=== PATIENT | female | born 1990 | race Caucasian/White ===

== ENCOUNTER 2018-10-29 14:45 | Emergency (ER) | payer MEDICAID, OTHER ==
[2018-10-29 16:24] LABS: BASOPHILS % (AUTO) 0.6 % (0.0-5.0); EOSINOPHILS % (AUTO) 1.5 % (0.0-8.0); HEMATOCRIT 39.1 % (36-48); LYMPHOCYTES % (AUTO) 26.8 % (21.0-51.0); MEAN CORPUSCULAR HEMOGLOBIN 31.8 pg (27.0-33.0); MEAN CORPUSCULAR HGB CONC 33.4 g/dL (32.0-36.0); MONOCYTES % (AUTO) 4.8 % (3.0-13.0); NEUTROPHILS % (AUTO) 66.3 % (40.0-77.0); PLATELET COUNT (AUTO) 200 K/uL (130-400); RED BLOOD CELL COUNT(AUTO) 4.12 MIL/uL (4.00-5.50); RED CELL DISTRIBUTION WIDTH 13.5 % (11.0-15.5); WHITE BLOOD COUNT (AUTO) 8.3 K/uL (4.8-10.8)
[2018-10-29 16:38] LABS: CREATININE 0.7 mg/dL (0.5-1.5); POTASSIUM 3.9 mmol/L (3.5-5.1)
[2018-10-29 16:51] LABS: APPEARANCE,URINE Clear (CLEAR); BILIRUBIN,URINE Negative (NEGATIVE); COLOR,URINE Yellow (YELLOW); GLUCOSE, URINE (UA) Negative (NEGATIVE); KETONES,URINE Negative (NEGATIVE); LEUKOCYTE ESTERASE ,URINE Negative (NEGATIVE); NITRATE,URINE Negative (NEGATIVE); OCCULT BLOOD,URINE Negative (NEGATIVE); PH,URINE 7.5 (5.0-8.0); PROTEIN,URINE Negative (NEGATIVE); UROBILINOGEN,URINE 0.2 mg/dL (0.2-1.0)
[2018-10-29 16:57] LABS: HCG,QUAL RESULT POSITIVE (NEGATIVE)
[2018-10-29 17:07] LABS: ALBUMIN 3.8 g/dL (3.5-5.0); BILIRUBIN,DIRECT 0.1 mg/dL (0.0-0.3); BILIRUBIN,TOTAL 0.3 mg/dL (0.2-1.0); TOTAL PROTEIN, SERUM 8.1 g/dL (6.0-8.3)
== END 2018-10-29 17:35 | disposition home or self-care (01) ==
LOC: EDH 14:45
DX: O21.8 Other vomiting complicating pregnancy (principal); O26.891 Other specified pregnancy related conditions, first trimester; R10.13 Epigastric pain; R10.30 Lower abdominal pain, unspecified; Z72.0 Tobacco use; Z98.890 Other specified postprocedural states; Z3A.01 Less than 8 weeks gestation of pregnancy
CPT/HCPCS: 36415; 76801; 80048; 80076; 81003; 81025; 83690; 84702; 85025; 86900; 86901

== ENCOUNTER 2019-03-24 15:05 | Emergency (ER) | payer MEDICAID | END 2019-03-24 15:37 | disposition home or self-care (01) | LOC: EDH 15:05 | DX: O98.512 Other viral diseases complicating pregnancy, second trimester (principal); B34.9 Viral infection, unspecified; O99.512 Diseases of the respiratory system complicating pregnancy, second trimester; J39.9 Disease of upper respiratory tract, unspecified; Z3A.27 27 weeks gestation of pregnancy; Z90.49 Acquired absence of other specified parts of digestive tract; Z98.890 Other specified postprocedural states ==

== ENCOUNTER 2019-06-04 07:26 | Inpatient (IN) | payer MEDICAID ==
[~2019-06-04] VITALS: Ht 154.9 cm; Wt 98.0 kg
[2019-06-04] MEDS ORDERED: LACTATED RINGERS 1000ML 1,000 ML IV PRN ×2 (08:20→10:48)
[2019-06-04 08:45] LABS: APPEARANCE,URINE Clear (CLEAR); BILIRUBIN,URINE Negative (NEGATIVE); COLOR,URINE Yellow (YELLOW); GLUCOSE, URINE (UA) Negative (NEGATIVE); KETONES,URINE Negative (NEGATIVE); LEUKOCYTE ESTERASE ,URINE Negative (NEGATIVE); NITRATE,URINE Negative (NEGATIVE); OCCULT BLOOD,URINE Trace (NEGATIVE); PH,URINE 6.5 (5.0-8.0); PROTEIN,URINE Negative (NEGATIVE); UROBILINOGEN,URINE 0.2 mg/dL (0.2-1.0)
[2019-06-04 08:46] LABS: HEMATOCRIT 34.4 % (36-48); MEAN CORPUSCULAR HEMOGLOBIN 29.6 pg (27.0-33.0); MEAN CORPUSCULAR HGB CONC 33.4 g/dL (32.0-36.0); MEAN CORPUSCULAR VOLUME 88.6 fL (79-99); NUCLEATED RED BLOOD CELLS 0.1 % (0.0-0.19); PLATELET COUNT (AUTO) 135 K/uL (130-400); RED BLOOD CELL COUNT(AUTO) 3.88 MIL/uL (4.00-5.50); RED CELL DISTRIBUTION WIDTH 15.5 % (11.0-15.5); WHITE BLOOD COUNT (AUTO) 11.6 K/uL (4.8-10.8)
[2019-06-04 08:52] LABS: AMPHET/METH SCREEN,URINE NEGATIVE (NEGATIVE); BARBITURATE SCREEN, URINE NEGATIVE (NEGATIVE); BENZODIAZEPINES SCREEN,URINE NEGATIVE (NEGATIVE); CANNABINOID SCREEN,URINE NEGATIVE (NEGATIVE); COCAINE SCREEN,URINE NEGATIVE (NEGATIVE); OPIATE SCREEN,URINE NEGATIVE (NEGATIVE); PHENCYCLIDINE SCREEN,URINE NEGATIVE (NEGATIVE)
[2019-06-04 09:29] LABS: RBC,URINE 0-1 /HPF (0-1); WBC,URINE 0-1 /HPF (0-1)
[2019-06-04 09:30] LABS: BACTERIA,URINE Rare /HPF (None Seen); SQUAMOUS EPITHELIAL CELL,UR Few /HPF (0-2)
[2019-06-04] MEDS ORDERED: PROMETHAZINE HCL 25 MG/ML 1ML AMPULE IM SCH (09:30)
[2019-06-04] MEDS ORDERED: MEPERIDINE-PF 50 MG/ML SYG IVP SCH (09:30)
[2019-06-04 09:51] VITALS: BP 130/68
[2019-06-04] MEDS ORDERED: NALOXONE HCL 0.4 MG/1 ML ML IV PRN (11:45)
[2019-06-04] MEDS ORDERED: ROPIVACAINE 0.2% 100ML VIAL 100 ML EP SCH (11:45)
[2019-06-04] MEDS ORDERED: LACTATED RINGERS 500 ML 500 ML IV PRN (11:45)
[2019-06-04] MEDS ORDERED: EPHEDRINE SULFATE 50 MG/ML AMPULE IVP PRN ×2 (11:45→20:30)
[2019-06-04] MEDS ORDERED: CLINDAMYCIN 900 MG/D5% WATER 50 ML IV PRN (15:00)
[2019-06-04] MEDS ORDERED: CLINDAMYCIN 900 MG/D5% WATER 50 ML IV ONE (15:02)
[2019-06-04] MEDS ORDERED: CITRIC ACID/SODIUM CITRATE 30 ML UDCUP ONE (15:32)
[2019-06-04] MEDS ORDERED: FENTANYL CITRATE PF 50 MCG/1 ML 2ML VIAL ONE (15:33)
[2019-06-04] MEDS ORDERED: DURAMORPH PF1 MG/ML 10ML AMP IV ONE (15:50)
[2019-06-04] MEDS ORDERED: OXYTOCIN 10 USP UNITS/ML ONE (15:50)
[2019-06-04] MEDS ORDERED: LIDOCAINE HCL-MPF 2% 5ML VIAL ONE (16:02)
[2019-06-04 16:28] LABS: HEMATOCRIT 34.4 % (36-48)
[2019-06-04] MEDS ORDERED: OXYTOCIN-LR 20 UNITS/1000 ML 1,000 ML IV ONE (16:39)
[2019-06-04] MEDS ORDERED: DEXTROSE 5 %-0.45 % NACL 1,000 ML IV PRN (16:45)
[2019-06-04] MEDS ORDERED: MEPERIDINE-PF 75 MG/ML SYG IM PRN (16:45)
[2019-06-04] MEDS ORDERED: PROMETHAZINE HCL 25 MG/ML 1ML AMPULE IM PRN (16:45)
[2019-06-04] MEDS ORDERED: SODIUM CHLORIDE 0.9% 10 ML VIAL IVP PRN (16:45)
[2019-06-04] MEDS ORDERED: IBUPROFEN 800 MG TAB ONE (19:26)
[2019-06-04] MEDS: IBUPROFEN 800 MG TAB PO SCH (19:41)
--- NOTE | 2019-06-04 20:15 | NUR ---
Reinforcing teaching on warning signs of increase bleeding or pain; instructing to report any concerns; Informing of current plan for continued care, encouraging freq position changes, , and to call for assistance when needed. Pt voices understanding; restates will call for increase bleeding, pain, or for any assistance as needed. Addendum: 06/04/19 at 2104 by IVÁN KING RN RN Amended: Links added.
[2019-06-04] MEDS ORDERED: NALOXONE HCL 0.4 MG/1 ML ML IVP PRN ×3 (20:30)
[2019-06-04] MEDS ORDERED: ONDANSETRON HCL 4 MG/2 ML VIAL IVP PRN (20:30)
[2019-06-04] MEDS ORDERED: DiphenhydrAMINE HCL 50 MG/ML VIAL IVP PRN (20:30)
--- NOTE | 2019-06-04 20:45 | NUR ---
Assisting to left lateral position; pillow to back & between knees for comfort; Pillow placed between left side rail & pt with baby as per pt request. Pt continues skin to skin while changing position. Addendum: 06/04/19 at 2110 by IVÁN KING RN RN Amended: Links added.
--- NOTE | 2019-06-04 20:56 | NUR ---
Pitocin 20 units in 1000ml LR continues via pump@150ml/hr with 700ml credit. Addendum: 06/04/19 at 2056 by IVÁN KING RN RN Amended: Links added.
--- NOTE | 2019-06-04 21:13 | NUR ---
Encouraging rest while baby is asleep, and instructing to report feelings of high temp, chills or body aches; Informing s/s of infection or lack of rest can hinder healing process; pt voices understanding & agrees to teaching. Addendum: 06/04/19 at 2115 by IVÁN KING RN RN Amended: Links added.
--- NOTE | 2019-06-04 21:43 | NUR ---
Pt requesting assistance to right side & francheska pad change; Changing francheska pads & noting abd dressing slightly soiled; Informing pt of soiled dressing under tape; will alecia to assess for increase in bleeding to site; pt voices understanding, denies pain or tenderness to incision at present. After francheska care & francheska pad change, panties are reapplied & assisting to right side for comfort. Call button within reach on bed. Addendum: 06/04/19 at 2246 by IVÁN KING RN RN Amended: Links added.
[2019-06-04 23:45] VITALS: BP 112/65
[2019-06-04] MEDS: OXYTOCIN-LR 20 UNITS/1000 ML 1,000 ML IV PRN (23:58)
--- NOTE | 2019-06-05 01:30 | NUR ---
Pt remains in bed, on right side; in bed with pt in prep for . Denies concerns or questions at present. Spouse at bedside offering support. Addendum: 06/05/19 at 0211 by IVÁN KING RN RN Amended: Links added.
[2019-06-05] MEDS ORDERED: PREN1TAB80 PO (02:24)
[2019-06-05] MEDS: OXYTOCIN-LR 20 UNITS/1000 ML 1,000 ML IV PRN (02:29)
[2019-06-05 04:00] VITALS: BP 94/55
[2019-06-05] MEDS ORDERED: IBUPROFEN 800 MG TAB ONE (04:07)
[2019-06-05] MEDS: IBUPROFEN 800 MG TAB PO SCH ×2 (04:14→17:53)
[2019-06-05 07:14] LABS: HEPATITIS Bs ANTIGEN SCREEN P Negative (Negative)
[2019-06-05 07:50] VITALS: BP 100/69
[2019-06-05] MEDS ORDERED: ACETAMINOPHEN EXTRA STRENGTH 500 MG TABLET PO PRN (08:45)
[2019-06-05] MEDS ORDERED: ACETAMINOPHEN-CODEINE 300/30MG TAB PO PRN (08:45)
[2019-06-05] MEDS ORDERED: HYDROCODONE/ACETAMINOPHEN 5/325 MG TAB PO PRN (08:45)
[2019-06-05] MEDS ORDERED: BISACODYL 10 MG SUPP.RECT RC PRN (08:45)
[2019-06-05] MEDS ORDERED: IBUPROFEN 600 MG TABLET PO PRN (08:45)
--- NOTE | 2019-06-05 09:45 | NUR ---
HX OF +UDS on 11/11/18 Marcie met with pt and RUSS Palomino. Couple live and work together at [employer]. [place] with their daughter JHONNY PALOMINO. Pt has a 8yro son José Luis who lives with his father in [place]. Pt denies CPS involvement with son, states this was their arrangement and she pays father child support for son. Pt on Medicaid, WIC and Food stamp assistance. Couple has basic items for baby including car seat. Pt plans to breast feed baby. Pt denies any hx of abuse, domestic violence, mental health issues, post depression, CPS or legal. Pt admits to occasional THC abuse prior to confirmation and denies any use during . Pt was negative and delivery. Baby to have meconium tested. If results at positive, CPS report to be made. SW contacted local CPS office and verified no CPS hx for pt. Addendum: 06/05/19 at 0952 by PANCHO LARKIN Amended: Links added.
[2019-06-05 09:49] LABS: HEMATOCRIT 27.6 % (36-48); MEAN CORPUSCULAR HEMOGLOBIN 29.5 pg (27.0-33.0); MEAN CORPUSCULAR HGB CONC 33.1 g/dL (32.0-36.0); MEAN CORPUSCULAR VOLUME 89.1 fL (79-99); PLATELET COUNT (AUTO) 116 K/uL (130-400); RED BLOOD CELL COUNT(AUTO) 3.09 MIL/uL (4.00-5.50); RED CELL DISTRIBUTION WIDTH 15.2 % (11.0-15.5); WHITE BLOOD COUNT (AUTO) 9.9 K/uL (4.8-10.8)
[2019-06-05] MEDS: DOCUSATE SODIUM 100 MG CAP PO SCH ×2 (09:58→20:59)
[2019-06-05] MEDS: SIMETHICONE 80 MG TAB.CHEW PO PRN ×4 (09:58→20:59)
[2019-06-05 12:00] VITALS: BP 122/66
[2019-06-05 16:20] VITALS: BP 114/59
[2019-06-05 19:52] VITALS: BP 115/69
[2019-06-05 23:50] VITALS: BP 114/78
[2019-06-06] MEDS: IBUPROFEN 800 MG TAB PO SCH ×2 (01:53→10:00)
[2019-06-06 03:48] VITALS: BP 108/69
[2019-06-06 07:30] VITALS: BP 106/62
--- NOTE | 2019-06-06 07:30 | NUR ---
PATIENT ASSESSED AND STATES HAVING PAIN OF 2 BUT WANTS TO WAIT FOR MOTRIN DUE AT 1000. INCISION IS OPEN TO AIR WITH INSORBS OR HIDDEN STITCH AND NO REDNESS OR DRAINAGE NOTED TO SITE. PATIENT DOES HAVE 2+ EDEMA TO LOWER EXTREMITIES AND WAS INCOURAGED TO WALK IN HALLWAY. STATES HAVING STARTED TO PASS GAS.
[2019-06-06] MEDS: DOCUSATE SODIUM 100 MG CAP PO SCH (07:59)
[2019-06-06] MEDS: SIMETHICONE 80 MG TAB.CHEW PO PRN ×2 (07:59→13:24)
--- NOTE | 2019-06-06 11:30 | NUR ---
DR. HOFFMANN ROUNDED AND DISCHARGED PATIENT TO HOME. SCRIPT FOR TYLENOL #3 AND FESO4 LEFT IN CHART FOR PATIENT.
[2019-06-06 12:00] VITALS: BP 122/81
--- NOTE | 2019-06-06 12:45 | NUR ---
PATIENT WAS GIVEN SCRIPT FOR PAIN MANAGEMENT AND IRON AND DISCHARGED COMPLETED AT THIS TIME. DENIES HAVING ANY QUESTION ON DISCHARGE INSTRUCTIONS GIVEN. INCISION CARE REINFORCED.
--- NOTE | 2019-06-06 14:55 | NUR ---
PATIENT WAS TAKEN VIA W/C TO FAMILY VEHICLE AND CARRIED BABY IN ARMS. PATIENT DISCHARGED TO HER MOTHER AND FAMILY. PT STABLE AND DENIES PAIN.
== END 2019-06-06 14:55 | disposition home or self-care (01) | DRG 540 ==
LOC: EDH 07:26 → OBSVTOIN 07:27 → LDH 07:27 → WSH 22:32
PROVIDERS: ADMIT Specialist; ATTEND Specialist
PROC: 10D00Z1 Extraction of Products of Conception, Low, Open Approach (ICD-10-PCS; principal; 2019-06-04 15:39)
DX: O34.211 Maternal care for low transverse scar from previous cesarean delivery (principal); O66.41 Failed attempted vaginal birth after previous cesarean delivery; Z3A.38 38 weeks gestation of pregnancy; Z37.0 Single live birth
CPT/HCPCS: 36415; 59510; 80305; 81001; 82947; 85014; 85018; 85027; 86592; 86850; 86900; 86901; 87340; A4314; A4344; A4606; G0378; J2175; J2274; J2550; J2590; J2795; J3010; J3490; J7120

== ENCOUNTER 2021-03-06 22:08 | Emergency (ER) | payer MEDICAID, OTHER ==
[~2021-03-06] VITALS: Ht 154.9 cm; Wt 90.7 kg
[~2021-03-06 22:08] MED LIST: PREN1TAB80 PO
[2021-03-06 22:09] VITALS: BP 143/92
[2021-03-07 03:18] VITALS: BP 134/73
[2021-03-07 03:52] VITALS: BP 134/73
[2021-03-07 04:47] LABS: BASOPHILS % (AUTO) 0.2 % (0.0-5.0); EOSINOPHILS % (AUTO) 1.4 % (0.0-8.0); HEMATOCRIT 39.3 % (36-48); LYMPHOCYTES % (AUTO) 43.1 % (21.0-51.0); MEAN CORPUSCULAR HEMOGLOBIN 31.1 pg (27.0-33.0); MEAN CORPUSCULAR HGB CONC 32.6 g/dL (32.0-36.0); MEAN CORPUSCULAR VOLUME 95.6 fL (79-99); MONOCYTES % (AUTO) 4.2 % (3.0-13.0); NEUTROPHILS % (AUTO) 50.9 % (40.0-77.0); PLATELET COUNT (AUTO) 213 K/uL (130-400); RED BLOOD CELL COUNT(AUTO) 4.11 MIL/uL (4.00-5.50); RED CELL DISTRIBUTION WIDTH 12.9 % (11.0-15.5); WHITE BLOOD COUNT (AUTO) 8.8 K/uL (4.8-10.8)
[2021-03-07 05:07] LABS: CREATININE 0.9 mg/dL (0.5-1.5); POTASSIUM 3.1 mmol/L (3.5-5.1)
[2021-03-07 05:16] LABS: ALBUMIN 3.9 g/dL (3.5-5.0); BILIRUBIN,TOTAL 0.5 mg/dL (0.2-1.0); MAGNESIUM 2.1 mg/dL (1.80-2.40); TOTAL PROTEIN, SERUM 8.2 g/dL (6.0-8.3)
[2021-03-07 05:20] VITALS: BP 131/71
[2021-03-07] MEDS ORDERED: IVER3TAB PO (06:20)
[2021-03-07] MEDS ORDERED: IPRA4AER IH (06:20)
[2021-03-07] MEDS ORDERED: ONDA4TAB4 PO (06:20)
[2021-03-07] MEDS ORDERED: MONT10TA21 PO (06:20)
[2021-03-07] MEDS ORDERED: AZIT500T2 PO (06:20)
== END 2021-03-07 06:30 | disposition home or self-care (01) ==
LOC: EDH 22:08
DX: U07.1 COVID-19 (principal); J12.82 Pneumonia due to coronavirus disease 2019; J45.909 Unspecified asthma, uncomplicated; Z88.0 Allergy status to penicillin
CPT/HCPCS: 36415; 71045; 80053; 82550; 83605; 83690; 83735; 84484; 84703; 85025; 86140; 87040 ×2; 87635; 87804 ×2; 99284; C9803